=== PATIENT | male | born 1960 | race Caucasian/White ===

== ENCOUNTER 2020-09-06 17:01 | Emergency (ER) | payer SELFPAY ==
[~2020-09-06] VITALS: Ht 172.7 cm; Wt 68.0 kg
[2020-09-06 18:04] LABS: BASOPHILS % (AUTO) 1 % (0-1); EOSINOPHILS % (AUTO) 7 % (1-7); LYMPHOCYTES % (AUTO) 18 % (22-44); MEAN CORPUSCULAR HEMOGLOBIN 30.9 pg (27.5-34.5); MEAN CORPUSCULAR HGB CONC 33.8 g/dL (33.2-36.2); MEAN PLATELET VOLUME 6.9 fL (7.4-10.4); MONOCYTES % (AUTO) 9 % (2-9); NEUTROPHILS % (AUTO) 66 % (42-75); PLATELET COUNT 286 x10^3/uL (130-400); RED BLOOD COUNT 4.69 x10^6/uL (4.38-5.82); RED CELL DISTRIBUTION WIDTH 13.4 % (9.4-14.8)
[2020-09-06 18:12] LABS: ALANINE AMINOTRANSFERASE 23 U/L (12-78); ALBUMIN 3.1 g/dL (3.4-5.0); ANION GAP 6 mmol/L (5-15); CALCIUM 8.4 mg/dL (8.5-10.1); CHLORIDE 110 mmol/L (98-107); CREATININE 0.82 mg/dL (0.7-1.3)
[2020-09-06 18:15] LABS: ALKALINE PHOSPHATASE 72 U/L (45-117); BILIRUBIN,TOTAL 0.6 mg/dL (0.2-1.0); MD NO; TOTAL PROTEIN 7.2 g/dL (6.4-8.2)
[2020-09-06] MEDS ORDERED: ACETAMINOPHEN 325 MG TABLET ONE (20:47)
[2020-09-06] MEDS ORDERED: BENZONATATE 100 MG CAPSULE ONE (20:47)
[2020-09-06] MEDS ORDERED: IBUPROFEN 600 MG TABLET ONE (20:47)
[2020-09-06] MEDS ORDERED: AZITHROMYCIN 250 MG TABLET ONE (20:47)
[2020-09-06 20:51] VITALS: BP 138/82
[2020-09-06] MEDS ORDERED: IBUPROFEN 600 MG TABLET PO ONE (21:00)
[2020-09-06] MEDS ORDERED: ACETAMINOPHEN 325 MG TABLET PO ONE (21:00)
[2020-09-06] MEDS ORDERED: AZITHROMYCIN 500 MG TABLET PO ONE (21:00)
[2020-09-06] MEDS ORDERED: BENZONATATE 100 MG CAPSULE PO ONE (21:00)
--- NOTE | 2020-09-06 21:06 | NUR ---
PT CAME IN CO OF RUNNY NOSE, CHILLS, BODY ACHES. PT RESTING IN GURNEY, VSS, NAD NOTED AT THIS TIME, MONITORING IN PLACE, WILL CONTINUE TO MONITOR. FOOD AND BLANKET PROVIDED. MEDICATED PER EMAR.
== END 2020-09-06 22:07 | disposition home or self-care (01) ==
LOC: ED 21:45
DX: J44.0 Chronic obstructive pulmonary disease with (acute) lower respiratory infection (principal); J98.4 Other disorders of lung; R06.02 Shortness of breath; R05 Cough; Z20.828 Contact with and (suspected) exposure to other viral communicable diseases; R00.0 Tachycardia, unspecified; M79.10 Myalgia, unspecified site; Z72.9 Problem related to lifestyle, unspecified; Z87.891 Personal history of nicotine dependence
CPT/HCPCS: 36415; 71045; 80053; 85025; 87635; 93005; 99285